=== PATIENT | female | born 1990 | race Caucasian/White ===

== ENCOUNTER 2025-05-23 08:09 | Observation (INO) | payer SELFPAY ==
[2025-05-23 08:33] LABS: #Basophils 0.08 10x3/uL (0.0-0.2); #Eosinophils 0.03 10x3/uL (0.0-0.7); #Monocytes 0.93 10x3/uL (0.11-0.59); #Neutrophils 13.36 10x3/uL (1.40-6.50); %Basophils 0.5 % (0.0-1.0); %Eosinophils 0.2 % (0.0-10.0); %Lymphocytes 12.0 % (21.0-51.0); %Monocytes 5.7 % (0.0-10.0); %Neutrophils 81.2 % (42.0-75.0); Hematocrit 44.2 % (36.0-47.0); Hemoglobin 14.7 g/dL (12.0-16.0); Mean Corpuscular Hemoglobin 29.4 pg (27.0-31.0); Mean Corpuscular Volume 88.4 fL (78.0-98.0); Platelet Count 299 10x3/uL (130-400); Red Blood Cell (RBC) Count 5.00 mill/uL (4.20-5.40); White Blood Cell (WBC) Count 16.44 10x3/uL (4.8-10.8)
[2025-05-23] MEDS ORDERED: levETIRAcetam 500 MG (5 mL) VIAL ONE (08:41)
[2025-05-23 08:45] LABS: ALT (SGPT) 41 U/L (Less than 34); AST (SGOT) 46 U/L (11-34); Albumin 4.1 g/dL (3.1-4.5); Alkaline Phosphatase 60 U/L (40-110); Anion Gap 19 mmol/L (10-20); BUN (Urea Nitrogen) 6 mg/dL (7.0-18.7); Bilirubin, Total 0.4 mg/dL (0.3-1.2); Calc. Creatinine Clearance 0 mL/min (70-130); Calcium 8.9 mg/dL (7.8-10.44); Carbon Dioxide 13 mmol/L (22-29); Chloride 108 mmol/L (98-107); Globulin 3.0 g/dL (2.4-3.5); Glucose 130 mg/dL (70-105); Magnesium 2.5 mg/dL (1.6-2.6); Potassium 3.6 mmol/L (3.5-5.1); Sodium 136 mmol/L (136-145)
[2025-05-23 08:50] LABS: BHCG - Serum Negative (NEGATIVE); Pregs Control Background? CLEAR/WHITE (CLR/WHITE); Pregs Control Bar Appear? YES (CONTROL BAR)
[2025-05-23 10:43] LABS: Cocaine Metabolite Screen Negative (Negative); THC/Cannabinoid Screen PRELIM POSITIVE (Negative); Tricyclic Screen Negative (Negative)
[2025-05-23] MEDS ORDERED: Ketorolac Tromethamine 30 MG (1 mL) VIAL ONE (10:43)
[2025-05-23] MEDS ORDERED: Acetaminophen 500 MG TAB ONE ×2 (10:43→12:00)
[2025-05-23] MEDS ORDERED: Metoclopramide HCl 10 MG (2 mL) VIAL ONE (10:49)
[2025-05-23] MEDS ORDERED: Ondansetron PF 4 MG/2 ML Vial IVP PRN (11:42)
[2025-05-23] MEDS ORDERED: Melatonin 3 MG TAB PO PRN (11:42)
[2025-05-23] MEDS ORDERED: Acetaminophen 325 MG TAB PO PRN (11:42)
[2025-05-23] MEDS ORDERED: Guaifenesin DM 100-10/5 ML UDCUP PO PRN (11:42)
[2025-05-23] MEDS ORDERED: Ketorolac Tromethamine 30 MG (1 mL) VIAL IVP PRN (12:07)
[2025-05-23 13:47] VITALS: BMI 25.1
[2025-05-23] MEDS ORDERED: Famotidine/PF 20 mg/2ml Vial SLOW IVP SCH (21:00)
[2025-05-23] MEDS ORDERED: Vancomycin 1 GM in Sodium Chloride 0.9% 250 ML 300 ML IVPB SCH (21:00)
[2025-05-23] MEDS: Famotidine/PF 20 mg/2ml Vial SLOW IVP SCH (21:54)
[2025-05-23] MEDS: levETIRAcetam 500 MG TAB PO SCH (21:54)
[2025-05-24 04:27] LABS: #Basophils 0.06 10x3/uL (0.0-0.2); #Eosinophils 0.06 10x3/uL (0.0-0.7); #Monocytes 0.72 10x3/uL (0.11-0.59); #Neutrophils 5.54 10x3/uL (1.40-6.50); %Basophils 0.6 % (0.0-1.0); %Eosinophils 0.6 % (0.0-10.0); %Lymphocytes 31.2 % (21.0-51.0); %Monocytes 7.7 % (0.0-10.0); %Neutrophils 59.5 % (42.0-75.0); Hematocrit 37.1 % (36.0-47.0); Hemoglobin 12.4 g/dL (12.0-16.0); Mean Corpuscular Hemoglobin 29.6 pg (27.0-31.0); Mean Corpuscular Volume 88.5 fL (78.0-98.0); Platelet Count 216 10x3/uL (130-400); Red Blood Cell (RBC) Count 4.19 mill/uL (4.20-5.40); White Blood Cell (WBC) Count 9.33 10x3/uL (4.8-10.8)
[2025-05-24 04:50] LABS: Anion Gap 13 mmol/L (10-20); BUN (Urea Nitrogen) 5 mg/dL (7.0-18.7); Calc. Creatinine Clearance 116 mL/min (70-130); Calcium 8.4 mg/dL (7.8-10.44); Carbon Dioxide 21 mmol/L (22-29); Chloride 110 mmol/L (98-107); Glucose 85 mg/dL (70-105); Potassium 3.1 mmol/L (3.5-5.1); Sodium 141 mmol/L (136-145)
[2025-05-24] MEDS: Enoxaparin 40 MG (0.4 mL) SYRINGE SC SCH (09:25)
[2025-05-24 14:01] VITALS: BP 123/89; TEMP 98.6
== END 2025-05-24 15:05 | disposition home or self-care (01) ==
LOC: ERS 08:09 → ERHOLD 11:09 → 2SE 20:57
PROVIDERS: ADMIT Hospitalist; ATTEND Hospitalist
DX: G40.409 Other generalized epilepsy and epileptic syndromes, not intractable, without status epilepticus (principal); D72.829 Elevated white blood cell count, unspecified; F41.0 Panic disorder [episodic paroxysmal anxiety]; F32.A Depression, unspecified; F17.290 Nicotine dependence, other tobacco product, uncomplicated; F12.90 Cannabis use, unspecified, uncomplicated
CPT/HCPCS: 36415; 70450; 70553; 76376; 80048; 80053; 80306; 83735; 84146; 84443; 84703; 85025; 93005; 96372; 96374; 96375; 96376; G0378; J1308; J1650; J1885; J1953; J2765